=== PATIENT | female | born 1970 | race Caucasian/White ===

== ENCOUNTER 2025-10-10 19:03 | Emergency (ER) | payer BC ==
[2025-10-10] MEDS: Take Home: traMADol 50 MG, 4 Tab Pack PO ONE (19:59)
== END 2025-10-10 20:04 | disposition home or self-care (01) ==
LOC: LL.ED 19:03
DX: S92.424A Nondisplaced fracture of distal phalanx of right great toe, initial encounter for closed fracture (principal); Z79.899 Other long term (current) drug therapy; W07.XXXA Fall from chair, initial encounter
CPT/HCPCS: 73660-T5; 99283; A9270-GY